=== PATIENT | male | born 1955 | race Asian ===

== ENCOUNTER 2022-06-23 08:30 | Outpatient (RCR) | payer BC, SELFPAY ==
--- NOTE | 2022-05-18 08:49 | ONC.NURNOTE ---
Dx: prostate cancer
--- NOTE | 2022-05-22 10:55 | URNOTE ---
Request received for authorization for Nanda ([id number]). Prior authorization approved by [facility] Request #[id number].
[2022-05-23 09:26] VITALS: BP 172/91; PULSE 67; RESP 16; TEMP 36; O2SAT 100
[2022-05-23] MEDS: LEUPROLIDE ACETATE 7.5 MG (SQ) SYRINGE SUBCUT (09:35)
[2022-06-23 08:11] VITALS: BP 120/74; PULSE 79; RESP 16; TEMP 36.3; O2SAT 97
[2022-06-23] MEDS: LEUPROLIDE ACETATE 22.5 MG (SQ) SYRINGE SUBCUT (09:11)
== END 2022-11-19 23:59 | disposition home or self-care (01) ==
LOC: CCIC 08:30
PROVIDERS: PCP Internal Medicine; Referring Provider Internal Medicine; Visit Provider Internal Medicine
DX: C61 Malignant neoplasm of prostate (principal)
CPT/HCPCS: 96372; 96401; J9217